=== PATIENT | female | born 1940 | race Caucasian/White ===

== ENCOUNTER → 2019-11-30 11:14 | Outpatient (CLI) | payer MEDICARE, OTHER, SELFPAY ==
--- NOTE | 2019-11-30 | DI.MRI.S_ITS ---
PROCEDURE: MR LUMBAR SPINE WO/W CON INDICATIONS: Back pain, fevers. TECHNIQUE: Noncontrast sagittal T1 spin echo and T2 fast spin echo, sagittal STIR, axial T1 and T2 fast spin echo through the lumbar spine. In cases with scoliosis, additional coronal T2 fast spin echo may be performed. After the administration of contrast, sagittal and axial T1 spin echo with fat saturation through the lumbar spine. COMPARISON: None. FINDINGS: Image quality: Excellent. Alignment and curvature: Marked dextroscoliosis of the lumbar spine. Marrow: Marrow is of normal overall signal. No acute vertebral body compression fractures. No suspicious marrow enhancement. Spinal cord: Conus medullaris terminates at the L2 level. Visualized spinal cord demonstrates normal signal, without suspicious enhancement. Paraspinous soft tissues: No paravertebral masses or abnormal enhancement. At T12-L1, there is marked marrow edema involving the T12 and L1 vertebral bodies, with intradiscal fluid. There is also prominent paraspinal signal change and enhancement in particular along the posterior aspect of the vertebral bodies and disc space for example image 10/9, which suggests phlegmon/developing abscess. There is associated mild canal narrowing. Severe bilateral foraminal narrowing is present with nerve root compression Multilevel degenerative endplate sclerosis and spurring. Diffuse facet arthropathy. L1-L2: Mild canal narrowing. Partial effacement of both lateral recesses with bilaterally symmetric appearance. Moderate bilateral foraminal stenoses. L2-L3: Minimal canal narrowing. Lateral recesses appear grossly patent. Moderate right foraminal narrowing. Severe left foraminal stenosis with nerve root compression. L3-L4: Mild canal narrowing. Partial effacement of both lateral recesses with bilaterally symmetric appearance. Severe left foraminal stenosis with nerve root compression. Moderate right foraminal narrowing. L4-L5: Moderate canal stenosis. Severe left foraminal stenosis with nerve root compression. Moderate to severe right foraminal narrowing with nerve root compression. L5-S1: Mild canal narrowing. Partial effacement of both lateral recesses with bilaterally symmetric appearance. Moderate bilateral foraminal stenosis with nerve root compression. IMPRESSION: Marrow signal changes, and enhancement at the T12-L1 level in keeping with discitis/osteomyelitis. Associated adjacent anterior epidural enhancement presumably inflammatory mass, developing abscess with mild canal narrowing. Emergent neurosurgical consultation recommended. Lumbar spondylosis and facet arthropathy as above Findings and recommendations were personally telephoned and discussed with Dr. Camilo at 1440 hours on 11/30/19. Dictated by: Billy Teague M.D. on 11/30/2019 at 13:49 Approved by: Billy Teague M.D. on 11/30/2019 at 14:42
--- NOTE | 2019-11-30 | DI.MRI.S_ITS ---
PROCEDURE: MR PELIS WO/W CON INDICATIONS: Back pain. TECHNIQUE: Noncontrast axial and oblique coronal T1 spin echo and STIR through the sacroiliac joints. COMPARISON: None. FINDINGS: Image quality: Excellent. Bones: The sacroiliac joints appear intact. No definite osteitis No bony ankylosis. No suspicious marrow space occupying lesions. No evidence of insufficiency fracture. Scattered degenerative subchondral sclerosis and spurring. 3 mm mild right sacroiliac periarticular signal change image 12/4, technically non-specific. There is mild associated enhancement, although only minimal signal change on T1 weighted images. Lower lumbar spondylosis Soft tissues: No presacral masses. Rectum appears normal in caliber and wall thickness. No pathologic free pelvic fluid. IMPRESSION: Minimal right periarticular SI joint signal change and possible low-grade enhancement raises the possibility of very early erosion, technically indeterminate by strict criteria. Otherwise, negative examination as above. Dictated by: Billy Teague M.D. on 11/30/2019 at 13:22 Approved by: Billy Teague M.D. on 11/30/2019 at 13:49
== END ==
PROVIDERS: PCP Family Medicine; Referring Provider Family Medicine; Visit Provider Family Medicine
DX: M54.5 Low back pain (principal); M48.8X5 Other specified spondylopathies, thoracolumbar region; M47.816 Spondylosis without myelopathy or radiculopathy, lumbar region; R50.9 Fever, unspecified; M41.86 Other forms of scoliosis, lumbar region
CPT/HCPCS: 72158; 72197